=== PATIENT | female | born 1945 | race African-American/Black ===

== ENCOUNTER → 2017-02-18 | Outpatient (CLI) | payer OTHER | END | disposition home or self-care (01) | LOC: RAD 17:16 | DX: M25.512 Pain in left shoulder (principal); M79.605 Pain in left leg; M25.552 Pain in left hip; M25.562 Pain in left knee ==

== ENCOUNTER → 2017-03-12 | Outpatient (CLI) | payer OTHER | END | disposition home or self-care (01) | LOC: LAB 14:42 | DX: I10 Essential (primary) hypertension (principal); R19.5 Other fecal abnormalities; E78.2 Mixed hyperlipidemia; D64.89 Other specified anemias ==

== ENCOUNTER 2017-03-13 13:43 | Outpatient (CLI) | payer OTHER | END 2017-03-13 13:59 | disposition home or self-care (01) | LOC: LAB 13:43 | DX: I10 Essential (primary) hypertension (principal); R19.5 Other fecal abnormalities; E78.2 Mixed hyperlipidemia; D64.89 Other specified anemias ==

== ENCOUNTER 2017-09-27 10:54 | Outpatient (CLI) | payer OTHER | END 2017-09-27 10:56 | disposition home or self-care (01) | LOC: LAB 10:54 | DX: I11.9 Hypertensive heart disease without heart failure (principal) ==

== ENCOUNTER 2018-02-27 18:59 | Outpatient (CLI) | payer OTHER | END 2018-02-27 19:14 | disposition home or self-care (01) | LOC: RAD 18:59 | DX: S90.32XA Contusion of left foot, initial encounter (principal); M54.5 Low back pain ==

== ENCOUNTER → 2018-04-04 | Outpatient (CLI) | payer OTHER | END | disposition home or self-care (01) | LOC: RAD 501 09:49 | DX: S92.355A Nondisplaced fracture of fifth metatarsal bone, left foot, initial encounter for closed fracture (principal); S92.345A Nondisplaced fracture of fourth metatarsal bone, left foot, initial encounter for closed fracture ==

== ENCOUNTER 2018-04-11 12:18 | Outpatient (CLI) | payer OTHER | END 2018-04-11 12:37 | disposition home or self-care (01) | LOC: LAB 12:18 | DX: M54.5 Low back pain (principal); I10 Essential (primary) hypertension; Z01.810 Encounter for preprocedural cardiovascular examination; E03.8 Other specified hypothyroidism; E78.89 Other lipoprotein metabolism disorders; G62.89 Other specified polyneuropathies; Z12.31 Encounter for screening mammogram for malignant neoplasm of breast; Z13.820 Encounter for screening for osteoporosis ==

== ENCOUNTER 2018-04-12 10:45 | Outpatient (CLI) | payer OTHER | END 2018-04-12 11:48 | disposition home or self-care (01) | LOC: LAB 10:45 | DX: M54.5 Low back pain (principal); Z01.810 Encounter for preprocedural cardiovascular examination; I10 Essential (primary) hypertension; E03.8 Other specified hypothyroidism; E78.89 Other lipoprotein metabolism disorders; G62.89 Other specified polyneuropathies; Z12.31 Encounter for screening mammogram for malignant neoplasm of breast; Z13.820 Encounter for screening for osteoporosis ==

== ENCOUNTER 2018-04-14 08:03 | Outpatient (CLI) | payer OTHER | END 2018-04-14 08:13 | disposition home or self-care (01) | LOC: MAMO-SONO 08:03 | DX: Z12.31 Encounter for screening mammogram for malignant neoplasm of breast (principal); Z87.898 Personal history of other specified conditions; N64.89 Other specified disorders of breast; I10 Essential (primary) hypertension; M54.5 Low back pain; Z01.810 Encounter for preprocedural cardiovascular examination; E03.8 Other specified hypothyroidism; E78.89 Other lipoprotein metabolism disorders; G62.89 Other specified polyneuropathies; Z13.820 Encounter for screening for osteoporosis ==

== ENCOUNTER 2018-04-17 08:31 | Outpatient (CLI) | payer OTHER | END 2018-04-17 08:37 | disposition home or self-care (01) | LOC: LAB 08:31 | DX: I10 Essential (primary) hypertension (principal); M54.5 Low back pain; Z01.810 Encounter for preprocedural cardiovascular examination; E03.8 Other specified hypothyroidism; E78.49 Other hyperlipidemia; G62.89 Other specified polyneuropathies; Z12.31 Encounter for screening mammogram for malignant neoplasm of breast; Z13.820 Encounter for screening for osteoporosis ==

== ENCOUNTER 2018-04-17 11:21 | Outpatient (CLI) | payer OTHER | END 2018-04-17 13:15 | disposition home or self-care (01) | LOC: NUCLEAR 11:21 | DX: M54.5 Low back pain (principal); Z01.810 Encounter for preprocedural cardiovascular examination; E03.9 Hypothyroidism, unspecified; E78.9 Disorder of lipoprotein metabolism, unspecified; G62.9 Polyneuropathy, unspecified; M81.0 Age-related osteoporosis without current pathological fracture ==

== ENCOUNTER → 2018-06-05 | Outpatient (CLI) | payer OTHER | END | disposition home or self-care (01) | LOC: RAD 501 14:33 | DX: M79.672 Pain in left foot (principal); M25.512 Pain in left shoulder; M25.511 Pain in right shoulder ==

== ENCOUNTER 2018-10-02 13:21 | Outpatient (CLI) | payer OTHER | END 2018-10-02 13:25 | disposition home or self-care (01) | LOC: LAB 13:21 | DX: E03.8 Other specified hypothyroidism (principal); E78.2 Mixed hyperlipidemia; E11.9 Type 2 diabetes mellitus without complications; I10 Essential (primary) hypertension ==

== ENCOUNTER → 2018-10-18 08:44 | Outpatient (CLI) | payer OTHER | END | disposition home or self-care (01) | LOC: LAB 08:44 | DX: D64.89 Other specified anemias (principal); E88.89 Other specified metabolic disorders; D68.8 Other specified coagulation defects; Z22.322 Carrier or suspected carrier of Methicillin resistant Staphylococcus aureus; E13.69 Other specified diabetes mellitus with other specified complication; N39.0 Urinary tract infection, site not specified; Z76.89 Persons encountering health services in other specified circumstances ==

== ENCOUNTER → 2018-10-21 07:40 | Outpatient (CLI) | payer OTHER ==
[~2018-10-21 07:40] MED LIST: ALPRAZOLAM0.5 MG PO; DICLOFENAC SOD100 MG PO; GABAPENTIN600 MG PO; LOSARTAN-HCTZ1 EAC1 PO; PANTOPRAZOLE SO40 MG PO
== END | disposition home or self-care (01) ==
LOC: EKG 07:40
DX: I49.8 Other specified cardiac arrhythmias (principal)

== ENCOUNTER 2018-10-21 08:16 | Inpatient (IN) | payer OTHER ==
[~2018-10-21] VITALS: Ht 149.9 cm; Wt 59.0 kg
[2018-11-04] MEDS ORDERED: ALPRAZOLAM0.5 MG PO (08:03)
[2018-11-04] MEDS ORDERED: DICLOFENAC SOD100 MG PO (08:03)
[2018-11-04] MEDS ORDERED: PANTOPRAZOLE SO40 MG PO (08:03)
[2018-11-04] MEDS ORDERED: LOSARTAN-HCTZ1 EAC1 PO (08:03)
[2018-11-04] MEDS ORDERED: GABAPENTIN600 MG PO (08:04)
== END 2018-11-06 14:52 | DRG 465 ==
LOC: SURG 10-24 07:45 → O/R 11-03 10:20 → SURH 11-03 10:20
PROVIDERS: ADMIT Orthopaedic Surgery
PROC: 0Q8M0ZZ Division of Left Tarsal, Open Approach (ICD-10-PCS; 2018-11-03)
PROC: 0L8P0ZZ Division of Left Lower Leg Tendon, Open Approach (ICD-10-PCS; 2018-11-03)
PROC: 0QUM07Z Supplement Left Tarsal with Autologous Tissue Substitute, Open Approach (ICD-10-PCS; 2018-11-03)
PROC: 0LXP0ZZ Transfer Left Lower Leg Tendon, Open Approach (ICD-10-PCS; 2018-11-03)
PROC: 0LXT0ZZ Transfer Left Ankle Tendon, Open Approach (ICD-10-PCS; 2018-11-03)
PROC: 0HXLXZZ Transfer Left Lower Leg Skin, External Approach (ICD-10-PCS; principal; 2018-11-03 11:00)
DX: M66.362 Spontaneous rupture of flexor tendons, left lower leg (principal); M76.72 Peroneal tendinitis, left leg; M76.822 Posterior tibial tendinitis, left leg; M21.42 Flat foot [pes planus] (acquired), left foot; M21.072 Valgus deformity, not elsewhere classified, left ankle; S86.012A Strain of left Achilles tendon, initial encounter; S86.312A Strain of muscle(s) and tendon(s) of peroneal muscle group at lower leg level, left leg, initial encounter; S93.492A Sprain of other ligament of left ankle, initial encounter
CPT/HCPCS: 28300; 20902; 27685; 28238; 27695; 27698; C1776

== ENCOUNTER 2018-12-17 10:57 | Outpatient (CLI) | payer OTHER | END 2018-12-17 11:00 | disposition home or self-care (01) | LOC: RAD 10:57 | DX: M76.822 Posterior tibial tendinitis, left leg (principal); M21.42 Flat foot [pes planus] (acquired), left foot ==

== ENCOUNTER → 2019-01-15 | Outpatient (CLI) | payer OTHER | END | disposition home or self-care (01) | LOC: RAD 10:14 | DX: M25.572 Pain in left ankle and joints of left foot (principal) ==

== ENCOUNTER 2019-02-27 09:50 | Outpatient (CLI) | payer OTHER | END 2019-02-27 15:00 | disposition home or self-care (01) | LOC: LAB 09:50 | DX: E11.9 Type 2 diabetes mellitus without complications (principal); I10 Essential (primary) hypertension; E03.8 Other specified hypothyroidism; E78.2 Mixed hyperlipidemia; Z12.11 Encounter for screening for malignant neoplasm of colon ==

== ENCOUNTER 2019-03-02 10:20 | Outpatient (CLI) | payer OTHER | END 2019-03-02 15:00 | disposition home or self-care (01) | LOC: LAB 10:20 | DX: E11.9 Type 2 diabetes mellitus without complications (principal); E03.8 Other specified hypothyroidism; I10 Essential (primary) hypertension; E78.2 Mixed hyperlipidemia; Z12.11 Encounter for screening for malignant neoplasm of colon ==

== ENCOUNTER 2019-03-07 10:01 | Outpatient (CLI) | payer OTHER | END 2019-03-07 10:07 | disposition home or self-care (01) | LOC: LAB 10:01 | DX: E11.9 Type 2 diabetes mellitus without complications (principal); I10 Essential (primary) hypertension; E03.8 Other specified hypothyroidism; E78.2 Mixed hyperlipidemia; Z12.11 Encounter for screening for malignant neoplasm of colon ==

== ENCOUNTER 2019-04-24 11:23 | Outpatient (CLI) | payer OTHER | END 2019-04-24 11:30 | disposition home or self-care (01) | LOC: LAB 11:23 | DX: E11.9 Type 2 diabetes mellitus without complications (principal); E03.8 Other specified hypothyroidism; I10 Essential (primary) hypertension; E78.2 Mixed hyperlipidemia; Z12.11 Encounter for screening for malignant neoplasm of colon ==

== ENCOUNTER 2020-01-21 12:28 | Outpatient (CLI) | payer OTHER | END 2020-01-21 12:32 | disposition home or self-care (01) | LOC: RAD 12:28 | PROVIDERS: ATTEND Orthopaedic Surgery | DX: M79.672 Pain in left foot (principal); M20.22 Hallux rigidus, left foot ==

== ENCOUNTER 2020-02-26 11:26 | Outpatient (CLI) | payer OTHER | END 2020-02-26 18:00 | disposition home or self-care (01) | LOC: LAB 11:26 | PROVIDERS: ATTEND Orthopaedic Surgery | DX: N28.89 Other specified disorders of kidney and ureter (principal) ==

== ENCOUNTER → 2020-03-11 | Outpatient (CLI) | payer OTHER | END | disposition home or self-care (01) | LOC: MRI 11:18 | PROVIDERS: ATTEND Orthopaedic Surgery | DX: M79.672 Pain in left foot (principal) | CPT/HCPCS: 73719 ==

== ENCOUNTER 2020-04-06 09:34 | Outpatient (CLI) | payer OTHER | END 2020-04-06 09:46 | disposition home or self-care (01) | LOC: MRI 09:34 | PROVIDERS: ATTEND Physical Medicine & Rehabilitation | DX: M48.07 Spinal stenosis, lumbosacral region (principal); M54.5 Low back pain; M54.16 Radiculopathy, lumbar region | CPT/HCPCS: 72148 ==

== ENCOUNTER 2020-06-03 10:37 | Outpatient (CLI) | payer OTHER | END 2020-06-03 15:00 | disposition home or self-care (01) | LOC: LAB 10:37 | PROVIDERS: ATTEND Internal Medicine | DX: E78.89 Other lipoprotein metabolism disorders (principal); M54.5 Low back pain; E66.8 Other obesity; M89.8X0 Other specified disorders of bone, multiple sites; G62.89 Other specified polyneuropathies; K21.9 Gastro-esophageal reflux disease without esophagitis; M54.14 Radiculopathy, thoracic region; Z12.11 Encounter for screening for malignant neoplasm of colon; R10.13 Epigastric pain; M81.0 Age-related osteoporosis without current pathological fracture; M66.872 Spontaneous rupture of other tendons, left ankle and foot; M54.17 Radiculopathy, lumbosacral region; K29.30 Chronic superficial gastritis without bleeding; M79.672 Pain in left foot; I10 Essential (primary) hypertension; Z01.810 Encounter for preprocedural cardiovascular examination; E03.8 Other specified hypothyroidism; E55.9 Vitamin D deficiency, unspecified; I70.0 Atherosclerosis of aorta; F39 Unspecified mood [affective] disorder ==

== ENCOUNTER → 2020-06-06 10:47 | Outpatient (CLI) | payer OTHER | END | disposition home or self-care (01) | LOC: LAB 10:47 | PROVIDERS: ATTEND Internal Medicine | DX: E78.9 Disorder of lipoprotein metabolism, unspecified (principal); E66.8 Other obesity; M89.9 Disorder of bone, unspecified; G62.9 Polyneuropathy, unspecified; K21.9 Gastro-esophageal reflux disease without esophagitis; Z12.11 Encounter for screening for malignant neoplasm of colon; E03.9 Hypothyroidism, unspecified ==

== ENCOUNTER → 2020-08-05 | Outpatient (CLI) | payer OTHER | END | disposition home or self-care (01) | LOC: MRI 03-16 10:15 → RAD 10:25 | PROVIDERS: ATTEND Orthopaedic Surgery | DX: M79.671 Pain in right foot (principal); M79.672 Pain in left foot ==

== ENCOUNTER → 2021-07-06 | Outpatient (CLI) | payer OTHER | END | disposition home or self-care (01) | LOC: RAD 12:26 | PROVIDERS: ATTEND Internal Medicine Cardiovascular Disease | DX: M12.9 Arthropathy, unspecified (principal) ==

== ENCOUNTER 2021-07-10 10:27 | Outpatient (CLI) | payer OTHER | END 2021-07-10 10:32 | disposition home or self-care (01) | LOC: LAB 10:27 | PROVIDERS: ATTEND Internal Medicine Cardiovascular Disease | DX: I10 Essential (primary) hypertension (principal); E11.9 Type 2 diabetes mellitus without complications; E03.9 Hypothyroidism, unspecified; Z12.11 Encounter for screening for malignant neoplasm of colon; E78.2 Mixed hyperlipidemia; E55.9 Vitamin D deficiency, unspecified ==

== ENCOUNTER 2021-08-18 09:57 | Inpatient (IN) | payer OTHER ==
[~2021-08-18] VITALS: Ht 121.9 cm; Wt 81.6 kg
[2021-08-21] MEDS ORDERED: LOSARTAN POTAS100 MG (07:58)
== END 2021-08-23 19:47 | disposition home or self-care (01) | DRG 603 ==
LOC: ER 09:57 → SEC-K 13:00 → MEDJ 13:00
PROVIDERS: ADMIT Internal Medicine; ATTEND Internal Medicine
PROC: B54DZZZ Ultrasonography of Bilateral Lower Extremity Veins (ICD-10-PCS; principal; 2021-08-18)
PROC: B44HZZZ Ultrasonography of Bilateral Lower Extremity Arteries (ICD-10-PCS; 2021-08-18)
DX: L03.115 Cellulitis of right lower limb (principal); B95.4 Other streptococcus as the cause of diseases classified elsewhere; I10 Essential (primary) hypertension; Z20.822 Contact with and (suspected) exposure to COVID-19

== ENCOUNTER 2021-09-18 10:45 | Outpatient (CLI) | payer OTHER ==
[~2021-09-18 10:45] MED LIST changes: +LOSARTAN POTAS100 MG
== END 2021-09-18 11:03 | disposition home or self-care (01) ==
LOC: RAD → LAB 10:45
PROVIDERS: ATTEND Orthopaedic Surgery
DX: E55.9 Vitamin D deficiency, unspecified (principal); E56.1 Deficiency of vitamin K; E21.3 Hyperparathyroidism, unspecified; E88.9 Metabolic disorder, unspecified; M81.8 Other osteoporosis without current pathological fracture; M85.9 Disorder of bone density and structure, unspecified

== ENCOUNTER 2021-09-21 11:12 | Outpatient (CLI) | payer OTHER | END 2021-09-21 11:13 | disposition home or self-care (01) | LOC: NUCLEAR 11:12 | PROVIDERS: ATTEND Orthopaedic Surgery | DX: M81.0 Age-related osteoporosis without current pathological fracture (principal); Z88.8 Allergy status to other drugs, medicaments and biological substances; Z88.6 Allergy status to analgesic agent ==

== ENCOUNTER → 2021-09-21 12:17 | Outpatient (CLI) | payer OTHER | END | disposition home or self-care (01) | LOC: LAB 12:17 | PROVIDERS: ATTEND Internal Medicine Cardiovascular Disease | DX: I10 Essential (primary) hypertension (principal); E11.9 Type 2 diabetes mellitus without complications; E03.9 Hypothyroidism, unspecified; E78.2 Mixed hyperlipidemia ==